=== PATIENT | male | born 1970 | race Caucasian/White ===

== ENCOUNTER 2018-03-06 14:37 | Emergency (ER) | payer BC ==
[~2018-03-06] VITALS: Ht 172.7 cm; Wt 102.1 kg
[2018-03-06] MEDS ORDERED: CLONIDINE HCL 0.2 MG TAB PO ONE (15:15)
[2018-03-06 15:58] LABS: BASOPHILS % 0.3 % (0.0-1.0); EOSINOPHILS # (AUTO) 0.4 (0.0-0.4); HEMATOCRIT 42.2 % (38.2-49.6); LYMPHOCYTES # (AUTO) 2.9 (1.0-3.2); LYMPHOCYTES % 28.2 % (18.0-39.1); MEAN CORPUSCULAR HEMOGLOBIN 32.1 pg (28-32); MEAN CORPUSCULAR HGB CONC 35.5 g/dL (31-35); MEAN CORPUSCULAR VOLUME 90.2 fL (81-99); MONOCYTES % 10.1 % (4.4-11.3); NEUTROPHILS # (AUTO) 5.9 (2.1-6.9); PLATELET COUNT 179 x10e3/uL (140-360); RED BLOOD COUNT 4.68 x10e6/uL (4.3-5.7); RED CELL DISTRIBUTION WIDTH 12.2 % (11.7-14.4)
--- NOTE | 2018-03-06 16:07 | Diagnostic Imaging Report ---
EXAMINATION: CHEST 2 VIEWS INDICATION: Hypertension COMPARISON: None FINDINGS: TUBES and LINES: None. LUNGS: Lungs are well inflated. Lungs are clear. There is no evidence of pneumonia or pulmonary edema. PLEURA: No pleural effusion or pneumothorax. HEART AND MEDIASTINUM: The cardiomediastinal silhouette is unremarkable. BONES AND SOFT TISSUES: No acute osseous lesion. Soft tissues are unremarkable. UPPER ABDOMEN: No free air under the diaphragm. IMPRESSION: No acute thoracic abnormality. Signed by: Dr. Bassam Martinez M.D. on 03/06/2018 4:02 PM
--- NOTE | 2018-03-06 16:11 | Diagnostic Imaging Report ---
Radiographs of the right elbow - 3 views HISTORY: Pain. Swelling. COMPARISON: None available. FINDINGS: Bones: No acute displaced fracture. Osseous alignment is within normal limits. Joints: Scattered degenerative change. Prominent posterior lateral bone spur with soft tissue adjacent swelling. Soft tissues: The soft tissues appear unremarkable. IMPRESSION: Scattered degenerative change. Prominent posterior lateral bone spur with soft tissue adjacent swelling. Findings likely due to olecranon bursitis. Signed by: Dr. Bassam Martinez M.D. on 03/06/2018 4:07 PM
[2018-03-06 16:18] LABS: BLOOD UREA NITROGEN 22 mg/dL (7-26); BUN/CREATININE RATIO 20 (6-25); CALCIUM 9.9 mg/dL (8.4-10.2); CARBON DIOXIDE 23 mmol/L (22-29); CHLORIDE 109 mmol/L (98-107); EST GLOMERULAR FILTRATION RATE > 60 ML/MIN (60-); GLUCOSE 115 mg/dL (74-118); SODIUM 143 mmol/L (136-145)
[2018-03-06 16:30] LABS: CREATINE KINASE 158 IU/L (30-200)
[2018-03-06] MEDS ORDERED: HYDROCHLOROTHIA25 MG PO (16:39)
[2018-03-06] MEDS ORDERED: DOXYCYCLINE HY100 MG PO (16:39)
[2018-03-06] MEDS ORDERED: TYLENOL WITH C1 EACH PO (16:39)
== END 2018-03-06 18:02 | disposition home or self-care (01) ==
LOC: ER 14:37
DX: M25.521 Pain in right elbow (principal); M70.21 Olecranon bursitis, right elbow; I10 Essential (primary) hypertension
CPT/HCPCS: 36415; 71046; 80048; 82550; 82553; 84484; 84550; 85025; 85651; 93005; 99284